=== PATIENT | male | born 1970 | race Caucasian/White ===

== ENCOUNTER 2017-07-14 04:47 | Inpatient (IN) | payer SELFPAY ==
[~2017-07-14] VITALS: Ht 195.6 cm; Wt 142.7 kg
[~2017-07-14 04:47] MED LIST: AVAPRO150 MG PO; FLAGYL250 MG PO; FOLIC ACID1 MG PO; LACTULOSE20 GM/30 M PO; LEVAQUIN500 MG PO; METFORMIN HCL850 MG PO; PANTOPRAZOLE SO40 MG PO; PROPRANOLOL HCL10 MG PO; SIMETHICONE80 MG PO; ULTRAM50 MG PO
[2017-07-14] MEDS ORDERED: ASPIRIN 81 MG CHEW TAB PO ONE (05:00)
[2017-07-14 05:04] LABS: BASOPHILS # (AUTO) 0.1 (0.0-0.1); BASOPHILS % 0.6 % (0.0-1.0); EOSINOPHILS # (AUTO) 0.2 (0.0-0.4); HEMATOCRIT 41.4 % (38.2-49.6); LYMPHOCYTES # (AUTO) 1.4 (1.0-3.2); LYMPHOCYTES % 13.2 % (18.0-39.1); MEAN CORPUSCULAR HEMOGLOBIN 33.7 pg (28-32); MEAN CORPUSCULAR HGB CONC 36.2 g/dL (31-35); MONOCYTES # (AUTO) 0.7 (0.2-0.8); MONOCYTES % 6.5 % (4.4-11.3); NEUTROPHILS # (AUTO) 8.3 (2.1-6.9); NEUTROPHILS % 77.4 % (38.7-80.0); PLATELET COUNT 125 x10e3/uL (140-360); RED BLOOD COUNT 4.45 x10e6/uL (4.3-5.7); RED CELL DISTRIBUTION WIDTH 14.5 % (11.7-14.4)
[2017-07-14 05:10] LABS: INR 1.31; PROTHROMBIN TIME 15.3 seconds (11.9-14.5)
[2017-07-14 05:11] LABS: PARTIAL THROMBOPLASTIN TIME 27.6 seconds (23.8-35.5)
[2017-07-14 05:21] LABS: ALANINE AMINOTRANSFERASE 104 IU/L (0-55); ALBUMIN 3.8 g/dL (3.5-5.0); ALBUMIN/GLOBULIN RATIO 0.9 (0.8-2.0); ALKALINE PHOSPHATASE 143 IU/L (40-150); ANION GAP 11.6 mmol/L (8-16); BLOOD UREA NITROGEN 6 mg/dL (7-26); BUN/CREATININE RATIO 7 (6-25); CALCIUM 9.6 mg/dL (8.4-10.2); CARBON DIOXIDE 29 mmol/L (22-29); CHLORIDE 99 mmol/L (98-107); CREATINE KINASE 129 IU/L (30-200); CREATININE, SERUM 0.91 mg/dL (0.72-1.25); EST GLOMERULAR FILTRATION RATE > 60 ML/MIN (60-); GLUCOSE 332 mg/dL (74-118); POTASSIUM 3.6 mmol/L (3.5-5.1); SODIUM 136 mmol/L (136-145)
[2017-07-14 05:22] LABS: AMYLASE 56 U/L (25-125); LIPASE 112 U/L (8-78)
--- NOTE | 2017-07-14 05:36 | Diagnostic Imaging Report ---
EXAMINATION: CHEST SINGLE (PORTABLE) INDICATION: Chest pain COMPARISON: None FINDINGS: TUBES and LINES: None. LUNGS: Lungs are not well inflated. Lungs are clear. There is no evidence of pneumonia or pulmonary edema. PLEURA: No pleural effusion or pneumothorax. HEART AND MEDIASTINUM: The cardiomediastinal silhouette is unremarkable. BONES AND SOFT TISSUES: No acute osseous lesion. Soft tissues are unremarkable. UPPER ABDOMEN: No free air under the diaphragm. IMPRESSION: No acute thoracic abnormality. Signed by: Dr. Temo Villalpando M.D. on 07/14/2017 5:32 AM
[2017-07-14] MEDS ORDERED: PANTOPRAZOLE 40 MG 10ML VIAL IV STA (05:43)
[2017-07-14] MEDS ORDERED: SODIUM CHLORIDE 0.9% 1000ML 1,000 ML IV ONE (05:45)
[2017-07-14] MEDS ORDERED: INDOMETHACIN50 MG PO (06:33)
[2017-07-14] MEDS ORDERED: BELLADONNA ALK/PHENOBARBITAL 5 ML UDC PO STA (07:24)
[2017-07-14] MEDS ORDERED: MAGNESIUM/ALUMINUM/SIMETHICONE 30 ML UDC PO ONE (07:30)
[2017-07-14] MEDS ORDERED: LIDOCAINE VISC 2% SOLN 15 ML UDC PO ONE (07:30)
[2017-07-14] MEDS ORDERED: MORPHINE SULFATE 2 MG/ML SYR IV STA (07:31)
[2017-07-14] MEDS ORDERED: ONDANSETRON HCL INJ 2 MG/ML VIAL IV STA (07:31)
--- NOTE | 2017-07-14 08:50 | Diagnostic Imaging Report ---
PROCEDURE: CT ANGIOGRAPHY CHEST WITHOUT AND WITH CONTRAST COMPARISON: None available. INDICATIONS: DISSECTION TECHNIQUE: Multidetector CT scanning of the chest was performed from the level of the thoracic inlet to the upper abdomen before and after the intravenous administration of 100 cc of Isovue 370. Coronal and sagittal multiplanar reformations were obtained. FINDINGS: Lungs: The lungs are well inflated and clear. No filling defects are identified within the pulmonary arteries. Airways: The major airways are clear. Minimal bibasilar atelectasis. Pleura: There is no evidence of pleural effusion or pneumothorax. Heart and mediastinum: The heart and the mediastinum are normal. No Contour regularity or dissection flap is visualized. Abdomen: The visualized parts of the upper abdomen are unremarkable. Bones and soft tissues: The thoracic skeleton is normal for age. The soft tissues are unremarkable. IMPRESSION: No evidence of dissection. No acute abnormality of the chest. Dictated by: Tremayne Sandhu M.D. on 07/14/2017 at 8:52 Electronically approved by: Tremayne Sandhu M.D. on 07/14/2017 at 8:52
--- NOTE | 2017-07-14 09:19 | Diagnostic Imaging Report ---
PROCEDURE:CTA ABD/PELVIS WOW COMPARISON:None. INDICATIONS:DISSECTION TECHNIQUE: Multi-detector CT technology with Dose Reduction was employed. Images were obtained after the administration of 100 cc of Isovue-370 intravenously. For optimization of anatomic evaluation, multiplanar and volume rendering reconstructions were performed. Advanced 3-D off-line postprocessing were performed on a dedicated stand-alone workstation under the direct supervision of the interpreting physician. DLP: 2386.9 mGy-cm FINDINGS: Vessels: No contour irregularity is present. No dissection flap is noted. No aneurysmal dilation. Multiple splenic, gastric, and esophageal varices are present. Recanalization of the umbilical vein. Liver: Ill-defined hypodensity in the right lobe of the liver, series 5 image 97. Diffuse nodularity is present throughout the hepatic parenchyma. Contour irregularity is present. Poor visualization of the portal vein secondary to contrast bolus timing. Biliary: Small gallstones are present in the gallbladder. No gallbladder dilation. No intrahepatic or extrahepatic biliary duct dilation. Spleen: Splenomegaly, measuring 21.2 cm in the left midclavicular line. No focal mass. Pancreas: No peripancreatic soft tissue inflammatory changes. No focal mass. Normal enhancement. Adrenal Glands: No adrenal nodules. Kidneys: No focal mass. Normal enhancement. No hydronephrosis. No obstructing calculi. GI: Moderate amount of retained feces limits intraluminal evaluation of the colon. No appendix is visualized. No air-fluid levels or pneumoperitoneum. No bowel wall thickening. Peritoneum/Retroperitoneum: No pneumoperitoneum. No drainable fluid collection. Reproductive organs: Normal. Musculoskeletal: Degenerative changes of the thoracic spine. CONCLUSION: No evidence of dissection. Cirrhosis with portal hypertension and splenomegaly. Cholelithiasis. Hypodensity in the right lobe of the liver is indeterminate. An MRI of the abdomen with liver mass protocol may provide additional information for further characterization. Dictated by: Tremayne Sandhu M.D. on 07/14/2017 at 9:20 Electronically approved by: Tremayne Sandhu M.D. on 07/14/2017 at 9:20
[2017-07-14] MEDS ORDERED: IOPAMIDOL 370 MG/ML 200 ML INFUS..BTL INJ ONE (09:40)
[2017-07-14] MEDS ORDERED: SODIUM CHLORIDE 0.9% 100 ML ONE (09:40)
[2017-07-14] MEDS ORDERED: HYDROMORPHONE 1MG/1ML INJ IV STA (09:50)
[2017-07-14] MEDS ORDERED: DEXTROSE 50% SYRINGE 50 ML IV PRN (10:45)
--- NOTE | 2017-07-14 10:48 | Diagnostic Imaging Report ---
PROCEDURE:GALLBLADDER ULTRASOUND COMPARISON:None. INDICATIONS:abdominal pain FINDINGS: Liver: 17.1 cm. Increased hepatic parenchymal echogenicity. Nodular contour. Main portal vein: 1.3 cm. Hepatopedal flow. Gallbladder: No echogenic calculi, gallbladder wall thickening, or pericholecystic fluid. Common Bile Duct: 6.0 mm. No echogenic filling defect. Sonographic Vides's sign: Negative. Right kidney: 12.8 cm. No solid or cystic mass, echogenic calculi, or hydronephrosis. Normal parenchymal echogenicity. Pancreas: The visualized portions of the pancreas are normal. Inferior vena cava: Normal. Aorta: Normal. Ascites: None. CONCLUSION: 1. No acute sonographic abnormality. 2. Cirrhotic morphology of the liver. Dictated by: Tremayne Sandhu M.D. on 07/14/2017 at 10:49 Electronically approved by: Tremayne Sandhu M.D. on 07/14/2017 at 10:49
--- OUTSIDE RECORDS SUMMARY | 2017-07-14 10:52 | XMS REPORT ---
Author Author [facility] Address Unknown Phone Unavailable Care Team Providers Care Fiscal Clerk Name Role Phone JAYNE RODRIGUEZ Unavailable Unavailable Problems This patient has no known problems. Allergies, Adverse Reactions, Alerts This patient has no known allergies or adverse reactions. Medications This patient has no known medications. Results Test Description Test Time Test Comments Text Results Atomic Results Result Comments CTA CHEST [place] [address] Patient Name: NATHANIEL DE LA CRUZ MR # : [id number] : 1970 Age/Sex: 46/M Req #: [id number] Adm Physician: Ordered by: JAYNE RODRIGUEZ MD Report #: [id number] Location: ER Room/Bed: Procedure: [id number] CT/CTA CHEST Exam Date: 07/14/17 Exam Time: 817 REPORT STATUS: Signed PROCEDURE: CT ANGIOGRAPHY CHEST WITHOUT AND WITH CONTRAST COMPARISON: None available. INDICATIONS: DISSECTION TECHNIQUE: Multidetector CT scanning of the chest was performed from the level of the thoracic inlet to the upper abdomen before and after the intravenous administration of 100 cc of Isovue 370. Coronal and sagittal multiplanar reformations were obtained. FINDINGS: Lungs: The lungs are well inflated and clear. No filling defects are identified within the pulmonary arteries. Airways: The major airways are clear. Minimal bibasilar atelectasis. Pleura: There is no evidence of pleural effusion or pneumothorax. Heart and mediastinum: The heart and the mediastinum are normal. No Contour regularity or dissection flap is visualized. Abdomen: The visualized parts of the upper abdomen are unremarkable. Bones and soft tissues: The thoracic skeleton is normal for age. The soft tissues are unremarkable. IMPRESSION: No evidence of dissection. No acute abnormality of the chest. Dictated by: Sanford Padilla M.D. on 07/14 at 8:52 Electronically approved by: Sanford Padilla M.D. on 2017 at 8:52 Dictated By: SANFORD PADILLA MD 1 Transcribed By: SABA on 07/14/17851 COPY TO: JAYNE RODRIGUEZ MD CTA ABD/PELVIS [place] [address] Patient Name: NATHANIEL DE LA CRUZ MR #: [id number] : 1970 Age/Sex: 46/M Req #: [id number] Adm Physician: Ordered by: TERRY PALENCIA MD Report # : [id number] Location: ER Room/Bed: Procedure: [id number] CT/CTA ABD/PELVIS Exam Date: 07/14/17 Exam Time: 817 REPORT STATUS: Signed PROCEDURE: CTA ABD/PELVIS WOW COMPARISON: None. INDICATIONS: DISSECTION TECHNIQUE: Multi-detector CT technology with Dose Reduction was employed. Images were obtained after the administration of 100 cc of Isovue-370 intravenously. For optimization of anatomic evaluation, multiplanar and volume rendering reconstructions were performed. Advanced 3-D off-line postprocessing were performed on a dedicated stand-alone workstation under the direct supervision of the interpreting physician. DLP: 2386.9 mGy-cm FINDINGS: Vessels: No contour irregularity is present. No dissection flap is noted. No aneurysmal dilation. Multiple splenic, gastric, and esophageal varices are present. Recanalization of the umbilical vein. Liver: Ill-defined hypodensity in the right lobe of the liver, series 5 image 97. Diffuse nodularity is present throughout the hepatic parenchyma. Contour irregularity is present. Poor visualization of the portal vein secondary to contrast bolus timing. Biliary: Small gallstones are present in the gallbladder. No gallbladder dilation. No intrahepatic or extrahepatic biliary duct dilation. Spleen: Splenomegaly, measuring 21.2 cm in the left midclavicular line. No focal mass. Pancreas: No peripancreatic soft tissue inflammatory changes. No focal mass. Normal enhancement. Adrenal Glands: No adrenal nodules. Kidneys: No focal mass. Normal enhancement. No hydronephrosis. No obstructing calculi. GI: Moderate amount of retained feces limits intraluminal evaluation of the colon. No appendix is visualized. No air-fluid levels or pneumoperitoneum. No bowel wall thickening. Peritoneum/Retroperitoneum: No pneumoperitoneum. No drainable fluid collection. Reproductive organs: Normal. Musculoskeletal: Degenerative changes of the thoracic spine. CONCLUSION: No evidence of dissection. Cirrhosis with portal hypertension and splenomegaly. Cholelithiasis. Hypodensity in the right lobe of the liver is indeterminate. An MRI of the abdomen with liver mass protocol may provide additional information for further characterization. Dictated by: Sanford Padilla M.D. on 07/14/2017 at 9:20 Electronically approved by: Sanford Padilla M.D. on 07/14/2017 at 9:20 Dictated By: SANFORD PADILLA MD 9 Transcribed By: SABA on 07/14/17919 COPY TO: TERRY PALENCIA MD [facility] (PORTABLE) [place] [address] Patient Name: NATHANIEL DE LA CRUZ MR #: [id number] : 1970 Age/Sex: 46/M Req #: [id number] Adm Physician: Ordered by: TERRY PALENCIA MD Report #: [id number] Location: ER Room/Bed: ___ Procedure: [id number] DX/CHEST SINGLE (PORTABLE) Exam Date: Exam Time: REPORT STATUS: Signed EXAMINATION: CHEST SINGLE (PORTABLE) INDICATION: Chest pain COMPARISON: None FINDINGS: TUBES and LINES: None. LUNGS: Lungs are not well inflated. Lungs are clear. There is no evidence of pneumonia or pulmonary edema. PLEURA: No pleural effusion or pneumothorax. HEART AND MEDIASTINUM: The cardiomediastinal silhouette is unremarkable. BONES AND SOFT TISSUES: No acute osseous lesion. Soft tissues are unremarkable. UPPER ABDOMEN: No free air under the diaphragm. IMPRESSION: No acute thoracic abnormality. Signed by: Dr. Temo Villalpando M.D. on 07/14/2017 5:32 AM Dictated By: TEMO WICK MD 1 Transcribed By: CASSY on 07/14/17531 COPY TO: TERRY PALENCIA MD [place] [address] Patient Name: NATHANIEL DE LA CRUZ MR #: [id number] : 1970 Age/Sex: 46/M Req #: [id number] Adm Physician: Ordered by: TERRY PALENCIA MD Report # : [id number] Location: ER Room/Bed: Procedure: [id number] US/US GALLBLADDER Exam Date: 07/14/17 Exam Time: 08 REPORT STATUS: Signed PROCEDURE: GALLBLADDER ULTRASOUND COMPARISON: None. INDICATIONS: abdominal pain FINDINGS: Liver: 17.1 cm. Increased hepatic parenchymal echogenicity. Nodular contour. Main portal vein: 1.3 cm. Hepatopedal flow. Gallbladder: No echogenic calculi, gallbladder wall thickening, or pericholecystic fluid. Common Bile Duct: 6.0 mm. No echogenic filling defect. Sonographic Vides's sign: Negative. Right kidney: 12.8 cm. No solid or cystic mass, echogenic calculi, or hydronephrosis. Normal parenchymal echogenicity. Pancreas: The visualized portions of the pancreas are normal. Inferior vena cava: Normal. Aorta: Normal. Ascites: None. CONCLUSION: 1. No acute sonographic abnormality. 2. Cirrhotic morphology of the liver. Dictated by: Sanford Padilla M.D. on 07/14/2017 at 10:49 Electronically approved by: Sanford Padilla M.D. on 07/14/2017 at 10:49 Dictated By: SANFORD PADILLA MD 1049 COPY TO: TERRY PALENCIA MD
[2017-07-14] MEDS: INSULIN REGULAR, HUMAN 100 UNIT/1 ML 3ML VIAL SQ SCH ×3 (11:30→20:57)
[2017-07-14] MEDS ORDERED: PANTOPRAZOLE 40 MG 10ML VIAL IV SCH (12:00)
[2017-07-14] MEDS: D5.45%NS/KCL 20MEQ 1,000 ML IV SCH (13:34)
[2017-07-14 14:02] LABS: CREATINE KINASE MB 1.1 ng/mL (0-5.0)
[2017-07-14 14:49] VITALS: BP 118/57
[2017-07-14 16:00] VITALS: BP 145/66
[2017-07-14] MEDS ORDERED: ACETAMINOPHEN 325 MG TAB PO ONE (16:45)
[2017-07-14] MEDS ORDERED: TRAMADOL HCL 50 MG TAB PO PRN (18:30)
--- NOTE | 2017-07-14 18:45 | Consultation ---
DATE OF CONSULTATION: July 14, 2017 GASTROENTEROLOGY CONSULTATION HISTORY OF PRESENT ILLNESS: This is a 46-year-old gentleman who has a history of fatty liver and presented to the hospital because of some abdominal pain and lower chest pain area. His workup so far revealed that he has elevated liver function tests with AST of 142, ALT 104, bilirubin is 4, and the globulin is a little bit high at 4.3. His platelet count is a little bit low. He had an ultrasound and CAT scan of the abdomen and pelvis which shows evidence of cirrhosis on the liver and also there is a question of mass on the liver. There is a question of a gallstone on the CAT scan, but ultrasound did not confirm gallstones. OTHER MEDICAL PROBLEMS: Significant for history of fatty liver, and he has been followed by a liver doctor over at [facility]. ALLERGIES: NONE. SOCIAL HISTORY: He denies any alcohol use. FAMILY HISTORY: Noncontributory. REVIEW OF SYSTEMS: Otherwise unremarkable. PHYSICAL EXAMINATION GENERAL: Patient is awake, lying in bed, appears to be stable. Not in acute distress at this point. VITAL SIGNS: Afebrile currently. HEAD, EYES, EARS, NOSE AND THROAT: Normocephalic and atraumatic. Sclera is anicteric. NECK: Supple. CARDIAC: Heart sounds regular. LUNGS: Clear. ABDOMEN: Soft. There is some tenderness in the epigastric and right upper quadrant area. There is no rebound or mass that is felt. EXTREMITIES: No clubbing or cyanosis. LAB VALUES: WBC of 10.6, hemoglobin of 15, platelet count of 125. PT 15.3. The bilirubin 4, AST 142, ALT 104. CAT scan and ultrasound as mentioned before. IMPRESSION 1. Abdominal pain. Patient appears to have cirrhosis with a possible liver mass. Rule out possibility of hepatocellular carcinoma. 2. Thrombocytopenia. RECOMMENDATION: Obtain an MRI of the liver with contrast and also tumor marker and follow labs and clinically. Job#: [id number] EV cc:DAVID CHILDERS MD
--- NOTE | 2017-07-14 19:14 | History and Physical ---
CHIEF COMPLAINT: He is 46-year-old male patient of mine who presented to the emergency room with a complaint of abdominal pain and nausea for 2 days of origin. HISTORY OF PRESENT ILLNESS: Mr. Ministerio Chavez is a 46-year-old male patient with a known history of cirrhosis of liver and probably found with fatty liver, and he was under the treatment of the air export coordinator at [facility]. Presented to the emergency room with a complaint of abdominal pain, severe pain for 2 days of origin. Patient also having a central chest pain, and patient was thinking he might be having a heart attack, but in the emergency room when patient came here, had severe abdominal pain. SIGNIFICANT MEDICAL HISTORY: Patient has a medical history of diabetes mellitus, liver disease, cirrhosis of the liver, fatty liver. PAST SURGICAL HISTORY: Back surgery and tonsillectomy. ALLERGIES: NO KNOWN DRUG ALLERGIES. SOCIAL HISTORY: Patient smokes 1 pack a day and denies using alcohol. REVIEW OF SYSTEMS: Abdominal pain, chest pain, nausea. PHYSICAL EXAMINATION GENERAL: He is a middle-aged male patient lying in the bed, not in any acute distress. Patient is icteric. VITAL SIGNS: Temperature 99, pulse rate , blood pressure 90/60. HEENT: Normocephalic, atraumatic. Icterus present. LUNGS: Bilateral air entry. No rales, no rhonchi. HEART: S1 and S2, regular rhythm. No murmur, no gallop. ABDOMEN: Soft. Bowel sounds are present. NEUROLOGIC: No focal neurological deficit. ADMITTING IMPRESSION/DIAGNOSIS: Acute abdominal pain with cirrhosis of liver. Patient also has portal hypertension and splenomegaly and cholelithiasis on the CAT scan and right lobe liver mass, and patient had chest pain and hypotension. So, PE was ruled out. Patient had diabetes mellitus with hyperglycemia. Patient will be admitted with the above diagnosis. Will give IV fluids and keep patient n.p.o. and give IV analgesics and Protonix and will obtain GI consultation, Dr. Knutson. Patient will get MRI of the abdomen for liver mass protocol. Will give sliding-scale insulin. Job#: [id number] EV
[2017-07-14 19:51] LABS: CREATINE KINASE 55 IU/L (30-200)
[2017-07-14 20:19] VITALS: BP 119/59
[2017-07-14] MEDS: PROPRANOLOL HCL 10 MG TAB PO SCH (20:56)
[2017-07-14] MEDS: ACETAMINOPHEN 325 MG TAB PO PRN (21:15)
[2017-07-15] VITALS (7 sets, daily range): BP systolic 95–122; BP diastolic 52–72
[2017-07-15] MEDS: D5.45%NS/KCL 20MEQ 1,000 ML IV SCH (00:58)
[2017-07-15] MEDS: ONDANSETRON HCL INJ 2 MG/ML VIAL IV PRN ×4 (01:12→21:44)
[2017-07-15] MEDS: HYDROMORPHONE 1MG/1ML INJ IV PRN ×5 (01:12→21:44)
[2017-07-15] MEDS: PROPRANOLOL HCL 10 MG TAB PO SCH ×2 (05:32→17:34)
[2017-07-15] MEDS: ACETAMINOPHEN 325 MG TAB PO PRN ×2 (05:32→21:05)
[2017-07-15 06:12] LABS: BASOPHILS % 0.3 % (0.0-1.0); EOSINOPHILS % 0.2 % (0.0-6.0); HEMATOCRIT 36.8 % (38.2-49.6); HEMOGLOBIN 13.1 g/dL (14.0-18.0); LYMPHOCYTES # (AUTO) 0.5 (1.0-3.2); LYMPHOCYTES % 7.5 % (18.0-39.1); MEAN CORPUSCULAR HEMOGLOBIN 33.9 pg (28-32); MEAN CORPUSCULAR HGB CONC 35.6 g/dL (31-35); MEAN CORPUSCULAR VOLUME 95.1 fL (81-99); MONOCYTES # (AUTO) 0.5 (0.2-0.8); MONOCYTES % 7.7 % (4.4-11.3); NEUTROPHILS # (AUTO) 5.6 (2.1-6.9); NEUTROPHILS % 83.4 % (38.7-80.0); PLATELET COUNT 69 x10e3/uL (140-360); RED BLOOD COUNT 3.87 x10e6/uL (4.3-5.7); RED CELL DISTRIBUTION WIDTH 14.5 % (11.7-14.4)
[2017-07-15 06:38] LABS: ALANINE AMINOTRANSFERASE 123 IU/L (0-55); ALBUMIN 2.9 g/dL (3.5-5.0); ALBUMIN/GLOBULIN RATIO 0.8 (0.8-2.0); ALKALINE PHOSPHATASE 82 IU/L (40-150); ANION GAP 11.7 mmol/L (8-16); BLOOD UREA NITROGEN 12 mg/dL (7-26); BUN/CREATININE RATIO 14 (6-25); CALCIUM 8.6 mg/dL (8.4-10.2); CARBON DIOXIDE 28 mmol/L (22-29); CHLORIDE 99 mmol/L (98-107); CREATININE, SERUM 0.88 mg/dL (0.72-1.25); EST GLOMERULAR FILTRATION RATE > 60 ML/MIN (60-); GLUCOSE 235 mg/dL (74-118); POTASSIUM 3.7 mmol/L (3.5-5.1); SODIUM 135 mmol/L (136-145)
[2017-07-15 07:18] LABS: AMYLASE 25 U/L (25-125); CHOL/HDL RATIO 2.1 (3.9-4.7); CHOLESTEROL 30 MD/DL (0-199); CREATINE KINASE 50 IU/L (30-200); HDL CHOLESTEROL 14 MG/DL (40-60); LIPASE 15 U/L (8-78); TRIGLYCERIDES 45 MG/DL (0-149)
[2017-07-15 07:19] LABS: LDL CHOLESTEROL 7 MG/DL (60-130)
[2017-07-15] MEDS: FOLIC ACID 1 MG TAB PO SCH (07:49)
[2017-07-15] MEDS: PANTOPRAZOLE 40 MG 10ML VIAL IV SCH (07:49)
[2017-07-15] MEDS: IRBESARTAN 150 MG TAB PO SCH (07:49)
[2017-07-15] MEDS: INSULIN REGULAR, HUMAN 100 UNIT/1 ML 3ML VIAL SQ SCH ×4 (08:00→21:30)
[2017-07-15] MEDS: LEVOFLOXACIN 500MG/D5W 100ML 100 ML IV SCH (10:15)
[2017-07-15] MEDS ORDERED: GADOBENATE DIMEGLUMINE 1 ML IV ONE (12:00)
[2017-07-15] MEDS: METRONIDAZOLE 500MG/NS 100ML 100 ML IV SCH ×2 (12:28→21:05)
--- NOTE | 2017-07-15 14:01 | Diagnostic Imaging Report ---
EXAM: MRI of the abdomen with and without contrast. INDICATION: Not provided. COMPARISON: CTA of the abdomen dated 07/14/2017, right upper quadrant ultrasound dated 07/14/2017. TECHNIQUE: Multiplanar and multisequence imaging was performed of the abdomen. T1 and T2-weighted images were obtained with and without contrast. T1-weighted in and [id number] , Dynamic, post gadolinium T1-weighted spoiled gradient echo scans. IV Contrast: 20 cc of MultiHance Oral Contrast: None. Medications: None Discussion: Limited study due to motion and artifacts. LOWER THORAX: Unremarkable. HEPATOBILIARY: Nodular cirrhotic liver morphology. No definite evidence of hepatic mass, concerning limitations of the study. No biliary ductal dilation. GALLBLADDER: Dependent small gallstones in gallbladder. No wall thickening. SPLEEN: Splenomegaly, measuring 20 cm. PANCREAS: No focal masses or ductal dilatation. ADRENALS: No adrenal nodules KIDNEYS/URETERS: Kidneys enhance symmetrically. No hydronephrosis. No cystic or solid mass lesions. GI TRACT: Visualized bowel loops are unremarkable. No evidence of bowel obstruction. LYMPH NODES: No lymphadenopathy. Nonspecific subcentimeter retroperitoneal lymph nodes. VESSELS: Recanalized umbilical vein. Esophageal varices. PERITONEUM / RETROPERITONEUM: No free air or fluid. BONES: Unremarkable. SOFT TISSUES: Unremarkable. IMPRESSION: 1. Cirrhotic liver with signs of portal hypertension. 2. No definite evidence of hepatic lesion, considering limitations of the study. Recommend follow-up with right upper quadrant ultrasound in 3-6 months. 3. Cholelithiasis without evidence of cholecystitis. Signed by: Dr. Corey Villalta MD on 07/15/2017 1:58 PM
[2017-07-16] VITALS (9 sets, daily range): BP systolic 104–132; BP diastolic 50–75
[2017-07-16] MEDS: ONDANSETRON HCL INJ 2 MG/ML VIAL IV PRN ×5 (03:15→22:29)
[2017-07-16] MEDS: METRONIDAZOLE 500MG/NS 100ML 100 ML IV SCH (03:15)
[2017-07-16] MEDS: HYDROMORPHONE 1MG/1ML INJ IV PRN ×5 (03:15→22:29)
[2017-07-16] MEDS: PROPRANOLOL HCL 10 MG TAB PO SCH ×2 (05:44→18:17)
[2017-07-16] MEDS: ACETAMINOPHEN 325 MG TAB PO PRN ×2 (05:44→21:30)
[2017-07-16 06:16] LABS: BASOPHILS % 0.5 % (0.0-1.0); EOSINOPHILS % 0.2 % (0.0-6.0); HEMATOCRIT 39.4 % (38.2-49.6); HEMOGLOBIN 13.8 g/dL (14.0-18.0); LYMPHOCYTES # (AUTO) 0.6 (1.0-3.2); MEAN CORPUSCULAR HEMOGLOBIN 33.7 pg (28-32); MEAN CORPUSCULAR VOLUME 96.1 fL (81-99); MONOCYTES # (AUTO) 0.5 (0.2-0.8); MONOCYTES % 7.9 % (4.4-11.3); NEUTROPHILS # (AUTO) 5.4 (2.1-6.9); NEUTROPHILS % 81.9 % (38.7-80.0); PLATELET COUNT 81 x10e3/uL (140-360); RED CELL DISTRIBUTION WIDTH 14.6 % (11.7-14.4)
[2017-07-16 06:47] LABS: ALANINE AMINOTRANSFERASE 86 IU/L (0-55); ALBUMIN 2.9 g/dL (3.5-5.0); ALBUMIN/GLOBULIN RATIO 0.8 (0.8-2.0); ALKALINE PHOSPHATASE 76 IU/L (40-150); ANION GAP 12.7 mmol/L (8-16); BLOOD UREA NITROGEN 13 mg/dL (7-26); BUN/CREATININE RATIO 15 (6-25); CALCIUM 8.8 mg/dL (8.4-10.2); CARBON DIOXIDE 28 mmol/L (22-29); CHLORIDE 96 mmol/L (98-107); CREATININE, SERUM 0.87 mg/dL (0.72-1.25); EST GLOMERULAR FILTRATION RATE > 60 ML/MIN (60-); GLUCOSE 144 mg/dL (74-118); POTASSIUM 3.7 mmol/L (3.5-5.1); SODIUM 133 mmol/L (136-145)
[2017-07-16] MEDS: INSULIN REGULAR, HUMAN 100 UNIT/1 ML 3ML VIAL SQ SCH ×4 (07:30→21:00)
[2017-07-16] MEDS: PANTOPRAZOLE 40 MG 10ML VIAL IV SCH (09:00)
[2017-07-16] MEDS: IRBESARTAN 150 MG TAB PO SCH (09:00)
[2017-07-16] MEDS: FOLIC ACID 1 MG TAB PO SCH (09:00)
[2017-07-16] MEDS: LEVOFLOXACIN 500MG/D5W 100ML 100 ML IV SCH (10:00)
[2017-07-16] MEDS ORDERED: PNEUMOCOCCAL VACCINE POLYVALENT 23 MCG/0.5 ML VIAL IM ONE (10:15)
[2017-07-16] MEDS ORDERED: SINCALIDE 3 MCG/VIAL INJ ONE (10:28)
--- NOTE | 2017-07-16 10:36 | Consultation ---
DATE OF CONSULTATION: July 16, 2017 ATTENDING PHYSICIAN: Arnav Gresham MD INFECTIOUS DISEASE CONSULTATION REASON FOR CONSULTATION: Spontaneous bacterial peritonitis. Thank you, Dr. Gresham, for asking me to see this patient. HISTORY: The patient is a 46-year-old man referred for spontaneous bacterial peritonitis. He was admitted through the emergency department with acute pancreatitis with hyperlipidemia. The patient presented to the emergency department on 07/14/2017 with epigastric pain and thought that he was having a heart attack. He denies fever at home, nausea, vomiting, diarrhea, and dysuria. Also, he denies cough and shortness of breath as well as sick contact, recent hospitalization and recent procedure. In the emergency department, he was noted to have temperature of 99.2 degrees Fahrenheit, pulse 64, respiratory rate 16, blood pressure 106/65, and oxygen saturation 95% on room air. Initial laboratory studies show white cell count of 10,340 with 77% neutrophils, AST 142, ALT 104, alk phos 143, total bilirubin 4, and troponin less than 0.001. Gallbladder ultrasound showed gallstones but no acute abnormality. Chest CT angiogram showed no acute abnormality as well. PAST MEDICAL HISTORY: Diabetes mellitus, type 2, and cirrhosis of the liver. PAST SURGICAL HISTORY: Tonsillectomy and lower back surgery. ALLERGIES: NO KNOWN DRUG ALLERGIES. MEDICATION: The current antibiotics are Levaquin 500 mg IV piggyback q.24 h. and metronidazole 500 mg IV piggyback q.8 h.. IMMUNIZATION: He has not received pneumococcal vaccination. FAMILY HISTORY: Noncontributory. SOCIAL HISTORY: He smokes 1 pack of cigarettes a day. He denies alcohol and recreational drug use. REVIEW OF SYSTEMS: As per history of present illness. The spouse noticed yellowish discoloration of the patient's skin. Also, the patient has developed a fever, range 100 to 102 since admission. He denies cough, shortness of breath, nausea, vomiting, diarrhea and dysuria. PHYSICAL EXAMINATION GENERAL: No acute distress. VITAL SIGNS: T-max 102, pulse 90, respiratory rate 20, blood pressure 129/58. Weight 314 pounds. HEENT: Normocephalic. There is icterus but no injection of the conjunctivae. There is no ear or nasal discharge. Moist oral mucosa. No pharyngeal erythema or exudate. NECK: Supple. No lymphadenopathy. LUNGS: Good air entry bilaterally. HEART: Normal S1 and S2. ABDOMEN: Soft with epigastric and suprapubic tenderness. No rebound tenderness. EXTREMITIES: There is no edema, clubbing or cyanosis. The dorsalis pedis and posterior tibial pulses are palpable. SKIN: There is jaundice. No acute erythema. [employer]: Awake, alert and oriented to person, place and time. Nonfocal. Decreased sensation on monofilament examination, both feet. Normal vibration sensation of ankles and feet. LABORATORY: WBC 6590, hemoglobin 13.8, platelets 81,000, neutrophils 81.9, lymphs 9, mono 7.9, eosinophils 0.2, basophils 0.5. BUN 13, creatinine 0.87. AST 50, ALT 86, alk phos 76, total bilirubin 13.2. Blood culture is growing gram-negative chad. MRI of the abdomen showed cirrhotic liver with signs of portal hypertension and cholelithiasis without evidence of cholecystitis. IMPRESSION 1. Gram-negative chad septicemia present on admission. The source is unclear at this time, but may include cholangitis. Doubt pancreatitis. 2. Cirrhosis of the liver. 3. Diabetes mellitus, type 2, uncontrolled. 4. Tobacco use disorder. PLAN 1. Change metronidazole to cefepime 1 g IV piggyback q.8 h. 2. Await blood isolate identification and sensitivity. Check urine culture. Also check hepatitis serology if not yet done. 3. The patient should be given a pneumococcal vaccination per request. 4. GI input noted. 5. Smoking cessation counseling has been provided to the patient. Job#: [id number]
[2017-07-16] MEDS: CEFEPIME HCL 1 GM VIAL IV SCH ×2 (14:00→21:46)
[2017-07-16] MEDS ORDERED: TRAMADOL HCL 50 MG TAB PO PRN (14:15)
--- NOTE | 2017-07-16 18:49 | Diagnostic Imaging Report ---
Hepatobiliary Scan INDICATION: 46 M with acute pancreatitis and cirrhosis of the liver COMPARISON: MRI abdomen 07/15/2017 Report: Following the administration of 7 mCi of Tc-99m mebrofenin, dynamic images of the abdomen in the anterior projection were obtained through 60 minutes. Perfusion of the liver is normal. Extraction of tracer from the blood pool by the liver parenchyma is very markedly reduced with persistence of the blood pool throughout the 60 minutes of imaging. Tracer never appears within the biliary tract. Vicarious excretion of tracer through the kidneys is present. Impression: The hepatocyte function is markedly impaired and no tracer is secreted into the biliary tract. Without tracer in the biliary tract, it is not possible to evaluate the gallbladder. Signed by: Dr. Padmini Vega M.D. on 07/16/2017 6:45 PM
[2017-07-16] MEDS: SODIUM CHLORIDE 0.9% 1000ML 1,000 ML IV SCH (19:26)
[2017-07-17 00:57] LABS: CLARITY,URINE HAZY (CLEAR); COLOR,URINE AMBER (YELLOW); LEUKOCYTE ESTERASE ,URINE NEGATIVE (NEGATIVE); NITRITE,URINE NEGATIVE (NEGATIVE); PROTEIN,URINE DIPSTICK 1+ (NEGATIVE)
[2017-07-17 00:58] LABS: BILIRUBIN,URINE 3+ (NEGATIVE); KETONES,URINE NEGATIVE (NEGATIVE); URINE UROBILINOGEN 1 mg/dL (0.2 - 1)
[2017-07-17 01:36] LABS: BACTERIA,URINE FEW /HPF; EPITHELIAL CELLS,URINE FEW /LPF; RBC,URINE 0-5 /HPF (0-5)
[2017-07-17] MEDS: ONDANSETRON HCL INJ 2 MG/ML VIAL IV PRN ×5 (02:26→19:35)
[2017-07-17] MEDS: HYDROMORPHONE 1MG/1ML INJ IV PRN ×5 (02:26→19:35)
[2017-07-17 05:28] VITALS: BP 121/79
[2017-07-17] MEDS: PROPRANOLOL HCL 10 MG TAB PO SCH ×2 (05:55→18:25)
[2017-07-17] MEDS: CEFEPIME HCL 1 GM VIAL IV SCH ×3 (05:55→21:39)
[2017-07-17 06:20] LABS: BASOPHILS % 0.7 % (0.0-1.0); EOSINOPHILS # (AUTO) 0.1 (0.0-0.4); EOSINOPHILS % 1.7 % (0.0-6.0); HEMATOCRIT 35.3 % (38.2-49.6); HEMOGLOBIN 12.2 g/dL (14.0-18.0); LYMPHOCYTES # (AUTO) 0.6 (1.0-3.2); LYMPHOCYTES % 14.8 % (18.0-39.1); MEAN CORPUSCULAR HEMOGLOBIN 33.1 pg (28-32); MEAN CORPUSCULAR HGB CONC 34.6 g/dL (31-35); MEAN CORPUSCULAR VOLUME 95.7 fL (81-99); MONOCYTES # (AUTO) 0.8 (0.2-0.8); MONOCYTES % 18.4 % (4.4-11.3); NEUTROPHILS # (AUTO) 2.7 (2.1-6.9); NEUTROPHILS % 63.9 % (38.7-80.0); PLATELET COUNT 92 x10e3/uL (140-360); RED BLOOD COUNT 3.69 x10e6/uL (4.3-5.7); RED CELL DISTRIBUTION WIDTH 14.5 % (11.7-14.4)
[2017-07-17 06:50] LABS: ALANINE AMINOTRANSFERASE 59 IU/L (0-55); ALBUMIN 2.6 g/dL (3.5-5.0); ALBUMIN/GLOBULIN RATIO 0.8 (0.8-2.0); ALKALINE PHOSPHATASE 68 IU/L (40-150); ANION GAP 11.4 mmol/L (8-16); BLOOD UREA NITROGEN 14 mg/dL (7-26); BUN/CREATININE RATIO 16 (6-25); CALCIUM 8.7 mg/dL (8.4-10.2); CARBON DIOXIDE 28 mmol/L (22-29); CHLORIDE 96 mmol/L (98-107); CREATININE, SERUM 0.86 mg/dL (0.72-1.25); EST GLOMERULAR FILTRATION RATE > 60 ML/MIN (60-); GLUCOSE 150 mg/dL (74-118); POTASSIUM 3.4 mmol/L (3.5-5.1); SODIUM 132 mmol/L (136-145)
[2017-07-17 08:00] VITALS: BP 118/55
[2017-07-17] MEDS: FOLIC ACID 1 MG TAB PO SCH ×2 (09:00→09:22)
[2017-07-17] MEDS: INSULIN REGULAR, HUMAN 100 UNIT/1 ML 3ML VIAL SQ SCH ×4 (09:00→21:00)
[2017-07-17] MEDS: IRBESARTAN 150 MG TAB PO SCH ×2 (09:00→09:22)
[2017-07-17] MEDS: PANTOPRAZOLE 40 MG 10ML VIAL IV SCH (09:22)
[2017-07-17] MEDS: LEVOFLOXACIN 500MG/D5W 100ML 100 ML IV SCH (09:22)
[2017-07-17 12:00] VITALS: BP 114/62
[2017-07-17] MEDS: ACETAMINOPHEN 325 MG TAB PO PRN (14:42)
[2017-07-17] MEDS: SODIUM CHLORIDE 0.9% 1000ML 1,000 ML IV SCH (15:00)
[2017-07-17 16:00] VITALS: BP 121/72
[2017-07-17 19:42] VITALS: BP 115/74
[2017-07-17 20:00] VITALS: BP 129/62
[2017-07-18] MEDS: HYDROMORPHONE 1MG/1ML INJ IV PRN ×6 (00:06→21:19)
[2017-07-18] MEDS: ONDANSETRON HCL INJ 2 MG/ML VIAL IV PRN ×5 (00:06→21:20)
[2017-07-18 00:24] VITALS: BP 121/67
[2017-07-18] MEDS: PROPRANOLOL HCL 10 MG TAB PO SCH ×2 (05:38→17:37)
[2017-07-18] MEDS: CEFEPIME HCL 1 GM VIAL IV SCH (05:38)
[2017-07-18 06:05] VITALS: BP 123/68
[2017-07-18 06:06] LABS: BASOPHILS % 0.3 % (0.0-1.0); EOSINOPHILS # (AUTO) 0.1 (0.0-0.4); HEMATOCRIT 35.1 % (38.2-49.6); HEMOGLOBIN 12.2 g/dL (14.0-18.0); LYMPHOCYTES # (AUTO) 0.7 (1.0-3.2); LYMPHOCYTES % 24.2 % (18.0-39.1); MEAN CORPUSCULAR HEMOGLOBIN 33.2 pg (28-32); MEAN CORPUSCULAR HGB CONC 34.8 g/dL (31-35); MEAN CORPUSCULAR VOLUME 95.6 fL (81-99); MONOCYTES # (AUTO) 0.5 (0.2-0.8); MONOCYTES % 15.8 % (4.4-11.3); NEUTROPHILS # (AUTO) 1.7 (2.1-6.9); PLATELET COUNT 88 x10e3/uL (140-360); RED BLOOD COUNT 3.67 x10e6/uL (4.3-5.7); RED CELL DISTRIBUTION WIDTH 14.6 % (11.7-14.4)
[2017-07-18 06:28] LABS: ALANINE AMINOTRANSFERASE 47 IU/L (0-55); ALBUMIN 2.5 g/dL (3.5-5.0); ALBUMIN/GLOBULIN RATIO 0.8 (0.8-2.0); ALKALINE PHOSPHATASE 76 IU/L (40-150); ANION GAP 10.3 mmol/L (8-16); BLOOD UREA NITROGEN 8 mg/dL (7-26); BUN/CREATININE RATIO 11 (6-25); CALCIUM 8.4 mg/dL (8.4-10.2); CARBON DIOXIDE 29 mmol/L (22-29); CHLORIDE 98 mmol/L (98-107); CREATININE, SERUM 0.74 mg/dL (0.72-1.25); EST GLOMERULAR FILTRATION RATE > 60 ML/MIN (60-); GLUCOSE 105 mg/dL (74-118); POTASSIUM 3.3 mmol/L (3.5-5.1); SODIUM 134 mmol/L (136-145)
[2017-07-18 08:00] VITALS: BP 104/53
[2017-07-18] MEDS: INSULIN REGULAR, HUMAN 100 UNIT/1 ML 3ML VIAL SQ SCH ×4 (08:00→21:00)
[2017-07-18] MEDS ORDERED: POTASSIUM CHLORIDE 10MEQ/100ML 200 ML IV ONE (09:30)
[2017-07-18] MEDS: PANTOPRAZOLE 40 MG 10ML VIAL IV SCH (09:42)
[2017-07-18] MEDS: FOLIC ACID 1 MG TAB PO SCH (09:42)
[2017-07-18] MEDS: IRBESARTAN 150 MG TAB PO SCH (09:42)
[2017-07-18] MEDS: LEVOFLOXACIN 500MG/D5W 100ML 100 ML IV SCH (09:43)
[2017-07-18 12:00] VITALS: BP 115/56
[2017-07-18] MEDS: SODIUM CHLORIDE 0.9% 1000ML 1,000 ML IV SCH (13:21)
[2017-07-18 16:00] VITALS: BP 106/55
[2017-07-18 20:00] VITALS: BP 114/65
[2017-07-19] VITALS: BP 110/56
[2017-07-19] MEDS: HYDROMORPHONE 1MG/1ML INJ IV PRN ×6 (01:30→23:51)
[2017-07-19] MEDS: ONDANSETRON HCL INJ 2 MG/ML VIAL IV PRN ×6 (01:36→23:51)
[2017-07-19 04:00] VITALS: BP 128/61
[2017-07-19] MEDS: PROPRANOLOL HCL 10 MG TAB PO SCH ×2 (06:27→17:49)
[2017-07-19] MEDS: SODIUM CHLORIDE 0.9% 1000ML 1,000 ML IV SCH (06:27)
[2017-07-19 07:03] LABS: ALANINE AMINOTRANSFERASE 44 IU/L (0-55); ALBUMIN 2.3 g/dL (3.5-5.0); ALBUMIN/GLOBULIN RATIO 0.7 (0.8-2.0); ALKALINE PHOSPHATASE 88 IU/L (40-150); ANION GAP 9.5 mmol/L (8-16); BLOOD UREA NITROGEN 8 mg/dL (7-26); BUN/CREATININE RATIO 11 (6-25); CALCIUM 8.2 mg/dL (8.4-10.2); CARBON DIOXIDE 28 mmol/L (22-29); CHLORIDE 98 mmol/L (98-107); CREATININE, SERUM 0.73 mg/dL (0.72-1.25); EST GLOMERULAR FILTRATION RATE > 60 ML/MIN (60-); GLUCOSE 186 mg/dL (74-118); POTASSIUM 3.5 mmol/L (3.5-5.1); SODIUM 132 mmol/L (136-145)
[2017-07-19] MEDS: INSULIN REGULAR, HUMAN 100 UNIT/1 ML 3ML VIAL SQ SCH ×4 (07:30→20:45)
[2017-07-19 08:00] VITALS: BP 106/56
[2017-07-19] MEDS: PANTOPRAZOLE 40 MG 10ML VIAL IV SCH (08:40)
[2017-07-19] MEDS ORDERED: GADOBENATE DIMEGLUMINE 1 ML IV ONE (09:55)
[2017-07-19] MEDS: LEVOFLOXACIN 500MG/D5W 100ML 100 ML IV SCH (10:30)
[2017-07-19] MEDS: FOLIC ACID 1 MG TAB PO SCH (11:29)
[2017-07-19] MEDS: IRBESARTAN 150 MG TAB PO SCH (11:30)
[2017-07-19 12:00] VITALS: BP 101/52
[2017-07-19 16:00] VITALS: BP 112/58
--- NOTE | 2017-07-19 19:21 | Diagnostic Imaging Report ---
EXAM: MRI of the abdomen with and without contrast. INDICATION: Jaundice, rule out CBD stone COMPARISON: HIDA scan 07/16/2017, abdominal MRI 07/15/2017. TECHNIQUE: Multiplanar and multisequence imaging was performed of the abdomen. T1 and T2-weighted images were obtained with and without contrast. T1-weighted in and [id number] , Dynamic, post gadolinium T1-weighted spoiled gradient echo scans. M.R.C.P. Technique: Multiplanar, multisequence MRCP was performed. IV Contrast: 20 cc of MultiHance Oral Contrast: None. Medications: None Discussion: LOWER THORAX: Unremarkable. HEPATOBILIARY: Nodular cirrhotic liver morphology. No definite evidence of hepatic mass. No biliary ductal dilation. GALLBLADDER: Dependent small gallstones in gallbladder. Mild gallbladder wall thickening measuring 6 mm. No hydrops. SPLEEN: Splenomegaly, measuring 19.3 cm in length PANCREAS: No focal masses or ductal dilatation. ADRENALS: No adrenal nodules KIDNEYS/URETERS: Kidneys enhance symmetrically. No hydronephrosis. Left renal 0.9 cm cyst. No solid mass lesions. GI TRACT: Visualized bowel loops are unremarkable. No evidence of bowel obstruction. LYMPH NODES: No lymphadenopathy. Nonspecific subcentimeter retroperitoneal lymph nodes. VESSELS: Recanalized umbilical vein. Esophageal varices. PERITONEUM / RETROPERITONEUM: No free fluid. BONES: Unremarkable. SOFT TISSUES: Unremarkable. IMPRESSION: 1. No evidence for choledocholithiasis. 2. Cholelithiasis with mild gallbladder wall thickening likely secondary to underlying cirrhosis/hypoalbuminemia. If clinical concern for acute cholecystitis exists, consider right upper quadrant ultrasound. 3. Cirrhotic liver with portal hypertension. 4. No definite evidence of hepatic lesion, considering limitations of the study. Recommend follow-up with right upper quadrant ultrasound in 3-6 months. Signed by: DR. Edilberto Mercedes MD on 07/19/2017 7:13 PM
[2017-07-19 20:00] VITALS: BP 112/62
[2017-07-20] VITALS (7 sets, daily range): BP systolic 99–131; BP diastolic 50–73
[2017-07-20] MEDS: SODIUM CHLORIDE 0.9% 1000ML 1,000 ML IV SCH ×2 (03:00→23:00)
[2017-07-20] MEDS: ONDANSETRON HCL INJ 2 MG/ML VIAL IV PRN ×4 (04:27→20:20)
[2017-07-20] MEDS: HYDROMORPHONE 1MG/1ML INJ IV PRN ×4 (04:27→20:20)
[2017-07-20] MEDS: PROPRANOLOL HCL 10 MG TAB PO SCH ×2 (05:55→17:25)
[2017-07-20] MEDS: INSULIN REGULAR, HUMAN 100 UNIT/1 ML 3ML VIAL SQ SCH ×4 (08:00→21:00)
[2017-07-20] MEDS: FOLIC ACID 1 MG TAB PO SCH (09:04)
[2017-07-20] MEDS: IRBESARTAN 150 MG TAB PO SCH (09:04)
[2017-07-20] MEDS: LEVOFLOXACIN 500MG/D5W 100ML 100 ML IV SCH (09:04)
[2017-07-20] MEDS: PANTOPRAZOLE 40 MG 10ML VIAL IV SCH (09:04)
[2017-07-21] VITALS (7 sets, daily range): BP systolic 108–131; BP diastolic 59–77
[2017-07-21] MEDS: HYDROMORPHONE 1MG/1ML INJ IV PRN ×4 (01:21→18:12)
[2017-07-21] MEDS: ONDANSETRON HCL INJ 2 MG/ML VIAL IV PRN ×2 (01:21→05:46)
[2017-07-21 06:16] LABS: BASOPHILS % 0.5 % (0.0-1.0); EOSINOPHILS # (AUTO) 0.1 (0.0-0.4); EOSINOPHILS % 3.2 % (0.0-6.0); HEMATOCRIT 34.7 % (38.2-49.6); HEMOGLOBIN 11.8 g/dL (14.0-18.0); LYMPHOCYTES # (AUTO) 1.1 (1.0-3.2); LYMPHOCYTES % 27.4 % (18.0-39.1); MEAN CORPUSCULAR HEMOGLOBIN 32.7 pg (28-32); MEAN CORPUSCULAR VOLUME 96.1 fL (81-99); MONOCYTES # (AUTO) 0.3 (0.2-0.8); MONOCYTES % 7.3 % (4.4-11.3); NEUTROPHILS # (AUTO) 2.5 (2.1-6.9); NEUTROPHILS % 60.9 % (38.7-80.0); PLATELET COUNT 120 x10e3/uL (140-360); RED BLOOD COUNT 3.61 x10e6/uL (4.3-5.7); RED CELL DISTRIBUTION WIDTH 14.8 % (11.7-14.4)
[2017-07-21] MEDS: PROPRANOLOL HCL 10 MG TAB PO SCH ×2 (06:54→16:48)
[2017-07-21 07:00] LABS: ALANINE AMINOTRANSFERASE 37 IU/L (0-55); ALBUMIN 2.2 g/dL (3.5-5.0); ALBUMIN/GLOBULIN RATIO 0.6 (0.8-2.0); ALKALINE PHOSPHATASE 112 IU/L (40-150); ANION GAP 8.2 mmol/L (8-16); BLOOD UREA NITROGEN < 5 mg/dL (7-26); CALCIUM 8.3 mg/dL (8.4-10.2); CARBON DIOXIDE 31 mmol/L (22-29); CHLORIDE 98 mmol/L (98-107); CREATININE, SERUM 0.68 mg/dL (0.72-1.25); EST GLOMERULAR FILTRATION RATE > 60 ML/MIN (60-); GLUCOSE 114 mg/dL (74-118); POTASSIUM 3.2 mmol/L (3.5-5.1); SODIUM 134 mmol/L (136-145)
[2017-07-21 07:01] LABS: BUN/CREATININE RATIO 7 (6-25)
[2017-07-21 08:07] LABS: EOSINOPHILS % (MANUAL) 1 % (0-7); LYMPHOCYTES % (MANUAL) 20 % (19-48); MONOCYTES % (MANUAL) 7 % (3.4-9.0); NEUTROPHILS % (MANUAL) 61 % (40-74)
[2017-07-21 08:08] LABS: ANISOCYTOSIS SLIGHT; HYPOCHROMASIA SLIGHT; POIKILOCYTOSIS SLIGHT
[2017-07-21 08:09] LABS: PLATELET ESTIMATE SLIGHTLY DECREASED; PLATELET MORPHOLOGY COMMENT NORMAL; RBC MORPHOLOGY COMMENT NORMAL
[2017-07-21] MEDS: INSULIN REGULAR, HUMAN 100 UNIT/1 ML 3ML VIAL SQ SCH ×4 (08:11→21:30)
[2017-07-21] MEDS: FOLIC ACID 1 MG TAB PO SCH (08:11)
[2017-07-21] MEDS: PANTOPRAZOLE 40 MG 10ML VIAL IV SCH (08:11)
[2017-07-21] MEDS: IRBESARTAN 150 MG TAB PO SCH (08:11)
[2017-07-21] MEDS ORDERED: POTASSIUM CHLORIDE 10 MEQ TABCR PO ONE (10:00)
[2017-07-21] MEDS: LEVOFLOXACIN 500MG/D5W 100ML 100 ML IV SCH (10:15)
[2017-07-21] MEDS: SODIUM CHLORIDE 0.9% 1000ML 1,000 ML IV SCH (13:06)
[2017-07-22] VITALS (8 sets, daily range): BP systolic 114–126; BP diastolic 53–67
[2017-07-22] MEDS: HYDROMORPHONE 1MG/1ML INJ IV PRN ×4 (00:24→22:30)
[2017-07-22] MEDS: PROPRANOLOL HCL 10 MG TAB PO SCH ×2 (06:30→17:11)
[2017-07-22 06:36] LABS: ALANINE AMINOTRANSFERASE 32 IU/L (0-55); ALBUMIN 2.4 g/dL (3.5-5.0); ALBUMIN/GLOBULIN RATIO 0.7 (0.8-2.0); ALKALINE PHOSPHATASE 137 IU/L (40-150); ANION GAP 10.3 mmol/L (8-16); BLOOD UREA NITROGEN 5 mg/dL (7-26); BUN/CREATININE RATIO 7 (6-25); CALCIUM 8.3 mg/dL (8.4-10.2); CARBON DIOXIDE 29 mmol/L (22-29); CHLORIDE 99 mmol/L (98-107); CREATININE, SERUM 0.75 mg/dL (0.72-1.25); EST GLOMERULAR FILTRATION RATE > 60 ML/MIN (60-); GLUCOSE 123 mg/dL (74-118); POTASSIUM 3.3 mmol/L (3.5-5.1); SODIUM 135 mmol/L (136-145)
[2017-07-22] MEDS: INSULIN REGULAR, HUMAN 100 UNIT/1 ML 3ML VIAL SQ SCH ×4 (07:26→21:23)
[2017-07-22] MEDS: PANTOPRAZOLE 40 MG 10ML VIAL IV SCH (08:51)
[2017-07-22] MEDS: IRBESARTAN 150 MG TAB PO SCH (08:52)
[2017-07-22] MEDS: FOLIC ACID 1 MG TAB PO SCH (08:52)
[2017-07-22] MEDS ORDERED: POTASSIUM CHLORIDE 10 MEQ TABCR PO ONE (09:30)
[2017-07-22] MEDS ORDERED: LACTULOSE SYRUP 20 GM/30 ML UDC PO PRN (09:30)
[2017-07-22] MEDS: LEVOFLOXACIN 500MG/D5W 100ML 100 ML IV SCH (10:10)
[2017-07-22] MEDS: SODIUM CHLORIDE 0.9% 1000ML 1,000 ML IV SCH (10:19)
--- NOTE | 2017-07-22 10:24 | Diagnostic Imaging Report ---
PROCEDURE:X-RAY ABDOMEN - KUB COMPARISON:None. INDICATIONS:ACUTE PANCREATITIS FINDINGS: There is a non-obstructed bowel-gas pattern. There are no calcifications projected over the renal shadows, expected location of the pancreas or the expected course of the ureters or bladder. Splenic shadow appears enlarged extending past the 12th rib. There are no acute osseous abnormalities. Degenerative changes of the lower thoracic and lumbar spine. The lung bases are clear. CONCLUSION: Splenomegaly Alfred Perera D.O. Dictated by: Alfred Perera D.O. on 07/22/2017 at 10:25 Electronically approved by: Alfred Perera D.O. on 07/22/2017 at 10:25
[2017-07-23] VITALS (7 sets, daily range): BP systolic 104–130; BP diastolic 51–67
[2017-07-23] MEDS: HYDROMORPHONE 1MG/1ML INJ IV PRN ×3 (06:29→18:34)
[2017-07-23] MEDS: ONDANSETRON HCL INJ 2 MG/ML VIAL IV PRN (06:29)
[2017-07-23] MEDS: PROPRANOLOL HCL 10 MG TAB PO SCH ×2 (06:30→17:46)
[2017-07-23 07:09] LABS: ALANINE AMINOTRANSFERASE 30 IU/L (0-55); ALBUMIN 2.1 g/dL (3.5-5.0); ALBUMIN/GLOBULIN RATIO 0.6 (0.8-2.0); ALKALINE PHOSPHATASE 127 IU/L (40-150); ANION GAP 9.4 mmol/L (8-16); BLOOD UREA NITROGEN < 5 mg/dL (7-26); CALCIUM 8.1 mg/dL (8.4-10.2); CARBON DIOXIDE 29 mmol/L (22-29); CHLORIDE 99 mmol/L (98-107); CREATININE, SERUM 0.65 mg/dL (0.72-1.25); EST GLOMERULAR FILTRATION RATE > 60 ML/MIN (60-); GLUCOSE 156 mg/dL (74-118); POTASSIUM 3.4 mmol/L (3.5-5.1); SODIUM 134 mmol/L (136-145)
[2017-07-23 07:10] LABS: BUN/CREATININE RATIO 8 (6-25)
[2017-07-23] MEDS: INSULIN REGULAR, HUMAN 100 UNIT/1 ML 3ML VIAL SQ SCH ×4 (07:30→21:45)
[2017-07-23] MEDS: PANTOPRAZOLE 40 MG 10ML VIAL IV SCH (08:50)
[2017-07-23] MEDS: FOLIC ACID 1 MG TAB PO SCH (08:50)
[2017-07-23] MEDS: IRBESARTAN 150 MG TAB PO SCH (09:00)
[2017-07-23] MEDS ORDERED: POTASSIUM CHLORIDE 10 MEQ TABCR PO ONE (09:30)
[2017-07-23] MEDS: SODIUM CHLORIDE 0.9% 1000ML 1,000 ML IV SCH (11:00)
[2017-07-23] MEDS ORDERED: HYDROMORPHONE 1MG/1ML INJ IV PRN (23:45)
[2017-07-24] MEDS: ONDANSETRON HCL INJ 2 MG/ML VIAL IV PRN ×2 (00:02→06:10)
[2017-07-24 00:27] VITALS: BP 130/58
[2017-07-24] MEDS: HYDROMORPHONE 1MG/1ML INJ IV PRN (06:10)
[2017-07-24] MEDS: PROPRANOLOL HCL 10 MG TAB PO SCH (06:32)
[2017-07-24] MEDS: SODIUM CHLORIDE 0.9% 1000ML 1,000 ML IV SCH (07:00)
[2017-07-24 07:05] LABS: ALANINE AMINOTRANSFERASE 31 IU/L (0-55); ALBUMIN 2.2 g/dL (3.5-5.0); ALBUMIN/GLOBULIN RATIO 0.5 (0.8-2.0); ALKALINE PHOSPHATASE 138 IU/L (40-150); ANION GAP 9.5 mmol/L (8-16); BLOOD UREA NITROGEN 5 mg/dL (7-26); BUN/CREATININE RATIO 7 (6-25); CALCIUM 8.3 mg/dL (8.4-10.2); CARBON DIOXIDE 30 mmol/L (22-29); CHLORIDE 99 mmol/L (98-107); CREATININE, SERUM 0.67 mg/dL (0.72-1.25); EST GLOMERULAR FILTRATION RATE > 60 ML/MIN (60-); GLUCOSE 137 mg/dL (74-118); POTASSIUM 3.5 mmol/L (3.5-5.1); SODIUM 135 mmol/L (136-145)
[2017-07-24 08:00] VITALS: BP 98/53
[2017-07-24] MEDS: INSULIN REGULAR, HUMAN 100 UNIT/1 ML 3ML VIAL SQ SCH (08:00)
[2017-07-24] MEDS: PANTOPRAZOLE 40 MG 10ML VIAL IV SCH (08:30)
[2017-07-24] MEDS: FOLIC ACID 1 MG TAB PO SCH (08:30)
[2017-07-24] MEDS: IRBESARTAN 150 MG TAB PO SCH (09:00)
[2017-07-24] MEDS ORDERED: TRAMADOL HCL 50 MG TAB PO ONE (10:30)
[2017-07-24] MEDS ORDERED: ONDANSETRON HCL 4 MG ORAL DISINTEGRATING TAB PO PRN (11:00)
[2017-07-24 12:00] VITALS: BP 92/55
--- NOTE | 2017-07-24 15:04 | Discharge Summary ---
This is a 46-year-old male patient with history of advanced liver cirrhosis. He presented with a complaint of severe abdominal pain and nausea. ADMITTING IMPRESSION AND DIAGNOSES 1. Suspected acute pancreatitis. 2. Liver cirrhosis. 3. Patient with cholelithiasis. 4. Portal hypertension. 5. Dehydration. 6. Diabetes mellitus. 7. Hypertension. 8. Esophageal varices. HOSPITAL COURSE SUMMARY: The patient was admitted with the above diagnoses. The patient was consulted by GI, Dr. Knutson, and surgery consultation was obtained. Subsequently, cholecystitis was suspected. MRI and MRCP of the abdomen were done. CT abdomen was done. HIDA scan was done. The patient had no sign of cholecystitis, but the patient has cholangitis and severe liver cirrhosis and diabetes mellitus. Surgery consult was done, but the patient was advised to be treated medically with antibiotics, no surgery. The patient was treated with IV Levaquin and Flagyl. The patient had a prolonged course because of underlying jaundice. Now, finally, upon stabilization, the patient will be discharged home on Levaquin. Case management services were requested to arrange for the patient to have outpatient liver services as the patient has advanced liver disease. The patient will need ongoing liver treatment, which has to be done at an advanced liver center, preferably at [facility]. Referral was requested, and social science teacher case management was referred for providing proper care to the patient. DAVID CHILDERS MD Job#: [id number]
== END 2017-07-24 15:01 | disposition home or self-care (01) | DRG 871 ==
LOC: ER 04:47 → ERHOLD 10:49 → MED/SURG2 13:21
PROVIDERS: ADMIT Internal Medicine; ATTEND Internal Medicine
DX: A41.89 Other specified sepsis (principal); K85.10 Biliary acute pancreatitis without necrosis or infection; K83.0 Cholangitis; I85.00 Esophageal varices without bleeding; R17 Unspecified jaundice; K76.6 Portal hypertension; K74.60 Unspecified cirrhosis of liver; E11.65 Type 2 diabetes mellitus with hyperglycemia; D69.6 Thrombocytopenia, unspecified; K80.20 Calculus of gallbladder without cholecystitis without obstruction; R07.89 Other chest pain; E78.5 Hyperlipidemia, unspecified; Z72.0 Tobacco use; K76.0 Fatty (change of) liver, not elsewhere classified; K75.9 Inflammatory liver disease, unspecified; B96.1 Klebsiella pneumoniae [K. pneumoniae] as the cause of diseases classified elsewhere; E86.0 Dehydration
CPT/HCPCS: 36415; 71045; 71275; 74018; 74174; 74183; 76705; 78227; 80053; 80061; 81001; 82105; 82150; 82378; 82550; 82553; 82948; 83690; 83880; 84484; 85025; 85379; 85610; 85730; 87040; 87071; 87086; 87186; 87205; 90732; 93005; 99284; A9537; J0692; J1170; J1956; J2270; J2405; J2805; J3480; J7030; J7050; Q9967

== ENCOUNTER → 2018-08-27 | Outpatient (CLI) | payer BC ==
[~2018-08-27] MED LIST changes: +INDOMETHACIN50 MG PO
--- NOTE | 2018-08-28 08:28 | Diagnostic Imaging Report ---
#[id number] - USBRECOMLT ULTRASOUND OF THE LEFT BREAST : 08/27/2018 No prior exams were available for comparison. Color flow, real-time and Doppler ultrasound were performed on the entire left breast with scanning in all four quadrants, retroareolar region and the left axilla. Limited comparison scanning in the right breast retroareolar region was also accomplished. -At 1 o'clock 2 cm from the nipple is a benign appearing lymph node in the left breast measuring 1.4 x 0.8 x 1.4 cm -At 2 o'clock left retroareolar region is a dilated duct measuring 5 x 2 x 3 mm -The pattern of the retroareolar region tissue of both breasts appears similar IMPRESSION: BENIGN There is no sonographic evidence of malignancy. Follow-up with ACR/ACS guidelines. Alfrde Perera Jr., D.O. cw/:08/27/2018 15:01:27 Embedded Software Test Engineer: SAMAN CAMPOS RDMS, [facility] letter sent: Normal Exam Ultrasound BI-RADS: 2 Benign
== END ==
LOC: US 11:44
PROVIDERS: ATTEND Internal Medicine
DX: N63.20 Unspecified lump in the left breast, unspecified quadrant (principal)

== ENCOUNTER 2019-05-12 12:01 | Emergency (ER) | payer BC ==
[~2019-05-12] VITALS: Ht 195.6 cm; Wt 142.4 kg
[2019-05-12] MEDS ORDERED: HYDROCODONE/APAP 10MG-325MG TAB PO ONE (12:15)
[2019-05-12 12:39] VITALS: BP 121/67
--- NOTE | 2019-05-12 14:12 | Diagnostic Imaging Report ---
Right knee, 3 views. History: Fall, right knee swelling, pain. Findings: There is increased suprapatellar soft tissue density with several small corticated osseous structures. Bone mineralization is normal. There is no evidence of fracture or dislocation. There are no lytic or sclerotic lesions. There is moderate diffuse joint space narrowing and osteophytosis. IMPRESSION: Tricompartmental DJD of the right knee with probable joint effusion and probable loose bodies within the joint. No acute osseous abnormality. Signed by: Ricky Das on 05/12/2019 2:10 PM
== END 2019-05-12 14:35 | disposition home or self-care (01) ==
LOC: ER 12:01
DX: M25.561 Pain in right knee (principal); S83.91XA Sprain of unspecified site of right knee, initial encounter; W01.0XXA Fall on same level from slipping, tripping and stumbling without subsequent striking against object, initial encounter; Y93.01 Activity, walking, marching and hiking; Y92.89 Other specified places as the place of occurrence of the external cause; E11.9 Type 2 diabetes mellitus without complications; K74.60 Unspecified cirrhosis of liver
CPT/HCPCS: 99283

== ENCOUNTER 2024-07-07 00:54 | Emergency (ER) | payer BC, OTHER ==
[~2024-07-07] VITALS: Ht 193 cm; Wt 97.5 kg
[2024-07-07 01:04] VITALS: PULSE 74; RESP 18; TEMP 98.3
[2024-07-07 03:49] VITALS: BP 127/70; PULSE 88; RESP 18; TEMP 98.4; O2SAT 99
== END 2024-07-07 03:50 | disposition home or self-care (01) ==
LOC: ER 00:59
DX: R07.89 Other chest pain (principal); M25.551 Pain in right hip; K80.20 Calculus of gallbladder without cholecystitis without obstruction; K76.9 Liver disease, unspecified
CPT/HCPCS: 71250; 99283